=== PATIENT | female | born 1990 | race Caucasian/White ===

== ENCOUNTER → 2020-06-25 13:54 | Outpatient (BNVA) | payer OTHER, SELFPAY | PROVIDERS: PCP Nurse Practitioner; Visit Provider Advanced Practice Midwife ==

== ENCOUNTER 2020-07-08 12:53 | Outpatient (REF) | payer OTHER, SELFPAY ==
--- NOTE | ~2020-07-08 | US_ITS ---
EXAMINATION: US PELVIS COMPLETE US PELVIS ENDOVAGINAL CLINICAL INFORMATION: Abnormal uterine and vaginal bleeding, unspecified COMPARISON: None. TECHNIQUE: Transabdominal and transvaginal images of the pelvis were obtained. FINDINGS: UTERUS: Anteverted, anteflexed Normal size and contour, measuring 6.7 x 2.7 x 4.2 cm (cervix to fundus x AP x transverse). Uniform, homogeneous endometrium measures 0.5 cm in width. Small amount of anechoic and heterogeneous fluid in the endocervical canal. RIGHT OVARY: Normal size and echogenicity measuring 2.6 x 0.8 x 1.7 cm. LEFT OVARY: Normal size and echogenicity measuring 2.4 x 1.4 x 1.5 cm. FREE FLUID: No pelvic free fluid. US/US pelvic complete IMPRESSION: Normal, thin endometrial stripe. There is heterogeneous echogenicity within the endocervical canal which may represent blood products.
--- NOTE | ~2020-07-08 | US_ITS ---
EXAMINATION: US PELVIS COMPLETE US PELVIS ENDOVAGINAL CLINICAL INFORMATION: Abnormal uterine and vaginal bleeding, unspecified COMPARISON: None. TECHNIQUE: Transabdominal and transvaginal images of the pelvis were obtained. FINDINGS: UTERUS: Anteverted, anteflexed Normal size and contour, measuring 6.7 x 2.7 x 4.2 cm (cervix to fundus x AP x transverse). Uniform, homogeneous endometrium measures 0.5 cm in width. Small amount of anechoic and heterogeneous fluid in the endocervical canal. RIGHT OVARY: Normal size and echogenicity measuring 2.6 x 0.8 x 1.7 cm. LEFT OVARY: Normal size and echogenicity measuring 2.4 x 1.4 x 1.5 cm. FREE FLUID: No pelvic free fluid. US/US transvaginal IMPRESSION: Normal, thin endometrial stripe. There is heterogeneous echogenicity within the endocervical canal which may represent blood products.
== END 2020-07-08 12:54 | disposition home or self-care (01) ==
LOC: HO.US 12:53
PROVIDERS: PCP Nurse Practitioner; Visit Provider Advanced Practice Midwife
DX: N93.9 Abnormal uterine and vaginal bleeding, unspecified (principal)
CPT/HCPCS: 76830; 76856

== ENCOUNTER 2020-07-16 10:13 | Outpatient (REF) | payer OTHER, SELFPAY | END 2020-07-16 10:14 | disposition home or self-care (01) | LOC: HO.LAB 10:13 | PROVIDERS: PCP Nurse Practitioner; Visit Provider Obstetrics & Gynecology | DX: N88.9 Noninflammatory disorder of cervix uteri, unspecified (principal); I10 Essential (primary) hypertension; Z32.02 Encounter for pregnancy test, result negative | CPT/HCPCS: 57454; 81025; 88305 ==

== ENCOUNTER → 2020-07-30 12:02 | Outpatient (BNVA) | payer OTHER, SELFPAY | PROVIDERS: PCP Nurse Practitioner; Visit Provider Obstetrics & Gynecology ==

== ENCOUNTER 2020-08-06 13:03 | Outpatient (REF) | payer OTHER, SELFPAY ==
--- NOTE | ~2020-08-06 | US_ITS ---
EXAMINATION: US DIAGNOSTIC ULTRASOUND BREAST, RIGHT US DIAGNOSTIC ULTRASOUND BREAST, LEFT CLINICAL INFORMATION: 30-year-old female with small bilateral palpable areas noted at routine clinical exam. Patient notes no palpable area of concern. No discharge. No prior breast imaging. Strong family history breast cancer in multiple relatives including mother age 24, aunt age 36 and grandmother age 40. COMPARISON: None. TECHNIQUE: Ultrasound of the bilateral breasts is performed with real-time estrada scale imaging and color Doppler without and with harmonics targeted to the areas of clinical concern. Bilateral diagnostic digital breast tomosynthesis was also scheduled but unable to be performed due to 3-D unit unexpectedly down at time of appointment. Mammography has been rescheduled for later this week. FINDINGS: Right: There is a 0.4 x 0.3 cm superficial cyst 5:00 position 2 cm from nipple. This shows circumscribed margins and increased through-transmission of sound at real-time imaging. No associated color flow. There is a oval circumscribed benign-appearing superficial solid mass 8:00 position 5 cm from nipple measuring 1.2 x 0.4 cm. The long axis is parallel with the skin. Margins are smooth. No other cystic or solid mass right breast in the targeted areas. No focal duct ectasia. Left: There is no focal suspicious finding. There is no cystic or solid mass, architectural abnormality, duct ectasia, or edema in the soft tissue planes. Management: Results are discussed with the patient at time of visit. The small oval nodule right breast 8:00 position most likely represents a benign fibroadenoma. Management options discussed. Patient is comfortable with short interval follow-up targeted ultrasound in 6 months. Diagnostic digital breast tomosynthesis has been rescheduled later this week. BRACA testing and additional adjunct annual screening with breast MR also discussed. US/US breast LT limited IMPRESSION: 1. Right: Probable fibroadenoma 8:00 position 1.2 x 0.4 cm. Tiny cyst 0.4 cm at 5:00 position. 2. Left: Unremarkable targeted breast ultrasound. 3. 3-D digital breast tomosynthesis pending. ASSESSMENT: BI-RADS 0: Incomplete - Need Additional Imaging Evaluation RECOMMENDATION: Bilateral diagnostic digital breast tomosynthesis (scheduled). This patient's information was entered into a reminder system with a target due date for their next mammogram.
== END 2020-08-06 13:04 | disposition home or self-care (01) ==
LOC: HO.MAMMO 13:03
PROVIDERS: Visit Provider Advanced Practice Midwife
DX: N63.21 Unspecified lump in the left breast, upper outer quadrant (principal); N63.25 Unspecified lump in the left breast, overlapping quadrants; N63.14 Unspecified lump in the right breast, lower inner quadrant; N63.11 Unspecified lump in the right breast, upper outer quadrant; Z80.3 Family history of malignant neoplasm of breast
CPT/HCPCS: 76642

== ENCOUNTER → 2020-08-13 14:09 | Outpatient (BNVA) | payer OTHER, SELFPAY | PROVIDERS: PCP Nurse Practitioner; Visit Provider Obstetrics & Gynecology ==

== ENCOUNTER → 2020-08-27 09:47 | Outpatient (BNVA) | payer OTHER, SELFPAY | PROVIDERS: PCP Nurse Practitioner; Visit Provider Obstetrics & Gynecology ==

== ENCOUNTER 2020-08-29 09:31 | Day surgery (SDC) | payer OTHER, SELFPAY ==
[2020-08-25 14:26] VITALS: BMI 27.5
--- NOTE | 2020-08-28 08:59 | HO.ANESPROP2 ---
Documented by User: Starr Beyer 08/28/20 08:59 HPI - Anesthesia Eval Consult details Narrative: 30yo F for Cervical Polypectomy PMFSH Active Problems Active Problems: All Active Problems (Updated 07/30/20 @ 14:23 by Garry Spaulding MD) Lesion of cervix (Acute) Past Medical History Medical History Pre-hypertension Family History Family History Mother Breast cancer Ovarian cancer Maternal Grandmother Breast cancer Maternal Aunt Breast cancer Surgical History Surgical History Hx of wisdom tooth extraction Social History Social History Alcohol intake: current Alcohol intake frequency: a few times a week Smoking Status: Never smoker Advance Directives Information Provided: No Gender identity: female Meds Allergies Allergy/AdvReac Type Severity Reaction Status Date / Time No Known Allergies Allergy Verified 08/27/20 09:55 Home Medications Medication Instructions Recorded Confirmed Last Taken Type levonorgestrel 0.15 mg-ethinyl 1 tab PO DAILY 06/25/20 08/25/20 Unknown History estradiol 30 mcg tablets,3 mos pack(91) Exam Exam Date and Time: August 28, 2020 0859 Height,Weight and Vital Signs: Height 5 ft 8 in Weight 82.1 kg Assessment and Plan Assessment Anesthesia Assessment: Chart Reviewed Documented by User: Jihan Luna 08/29/20 12:04 PMFSH Past Medical History Medical History Pre-hypertension Family History Family History Mother Breast cancer Ovarian cancer Maternal Grandmother Breast cancer Maternal Aunt Breast cancer Surgical History Surgical History Hx of wisdom tooth extraction Social History Social History Alcohol intake: current Alcohol intake frequency: a few times a week Smoking Status: Never smoker Advance Directives Information Provided: No Gender identity: female Meds Allergies Allergy/AdvReac Type Severity Reaction Status Date / Time No Known Allergies Allergy Verified 08/27/20 09:55 Home Medications Medication Instructions Recorded Confirmed Last Taken Type levonorgestrel 0.15 mg-ethinyl 1 tab PO DAILY 06/25/20 08/25/20 Unknown History estradiol 30 mcg tablets,3 mos pack(91) Exam Airway Mallampati Class: II TM Dist: >3cm Neck ROM: Full Assessment and Plan Assessment Anesthesia Assessment: Anesthesia Plan Discussed and Chart Reviewed Final Anesthetic Review NPO: Yes ASA Class: II Final Preanesthetic Review: No Changes in Pt Med Stat, Meds/Allgs Chart Reviewed, Consent Obtained/Reviewed and Anes Risks/Benef Reviewed Patient Risk: Low Procedure Risk: Low Assessment/Block/Sedation in SS: Assess/Block/Sedation-SS Anesthetic Plan Anesthetic Plan: MAC: Disposition: Standard PACU
[2020-08-29] VITALS (7 sets, daily range): BP systolic 111–145; BP diastolic 59–85; PULSE 65–90; RESP 16–18; TEMP 36.2–36.6; O2SAT 98–100
[2020-08-29 09:57] LABS: UPreg QC Valid YES; Urine Pregnancy NEGATIVE (NEGATIVE)
[2020-08-29] MEDS: Lactated Ringers 1,000 ML 100 ML IVCONT (12:10)
--- NOTE | 2020-08-29 12:45 | MHC.SHP ---
Pre-Procedural Eval Section A The patient is an INPATIENT: No Changes since office visit: No Cold of Flu in the past 2 weeks, No New Medical Problems, No Changes in Medication and No Patient answered all questions The History & Physical has been completed within 30 days and I have reviewed it.: Yes Section B Chief Complaint: Endocervical Polyp Allergies: Allergies Allergy/AdvReac Type Severity Reaction Status Date / Time No Known Allergies Allergy Verified 08/27/20 09:55 Plan Diagnosis/Plan: Unchanged I have reviewed the history and physical and performed a pertinent physical examination on my patient. No changes have occurred unless specified.
--- NOTE | 2020-08-29 13:13 | PM.OP ---
Brief Operative Note Date of Service: 05/02/20 Pre-op diagnosis: Cervical polyp Post-op diagnosis: same Procedure: Cervical polypectomy using LEEP Surgeon: Garry Spaulding MD Anesthesia: local and other (Paracervical block) Estimated blood loss (mL): 0 Pathology: other (Ant+post Cerv lip, Endocx, Post cone ECC) Condition: stable Disposition: other (Home)
--- NOTE | 2020-08-29 13:14 | W.PM.OPN ---
Operative Note Operative Note Date of Service: 05/02/20 Narrative: Preop diagnosis: Broad-based cervical polyp filling up the whole endocervix Operation: Cervical polypectomy using LEEP Post op diagnosis: same Anesthesia: paracervical block, mac Complications: none Pathology: Endocervical polyp QBL: minimal Procedure: The patient was put in the dorsal lithotomy position, was prepped and draped in the usual sterile fashion. A sterile speculum was inserted inside the patient vagina. 10 cc of Marcaine0.5% with epinephrine were given at 2,4 , 8, and 10 o'clock. Using a medium-size loop wire, the endocervical polyp filling up the whole endocervix was excised followed. Hemostasis was assured using cautery and Monsel solution. All instruments were taken out of the patient's vaginal cavity. the patient tolerated the procedure well and was discharged home with the following instructions: call if temperature is above 100.4, vaginal bleeding, abdominal pain or nausea or vomiting. Follow-up in the office in 2 weeks for postop visit
== END 2020-08-29 14:55 ==
LOC: HO.SSS 09:31
PROVIDERS: Nurse Practitioner; PCP Nurse Practitioner; Visit Provider Obstetrics & Gynecology
PROC: (CPT 58120; principal; 2020-08-29 12:50)
DX: N84.1 Polyp of cervix uteri (principal)
CPT/HCPCS: 57500; 81025; 88305; J1885; J2250; J2405; J3010

== ENCOUNTER 2020-09-03 13:27 | Outpatient (REF) | payer OTHER, SELFPAY ==
--- NOTE | ~2020-09-03 | MM_ITS ---
EXAMINATION: MM DIAGNOSTIC DIGITAL BREAST TOMOSYNTHESIS, BILATERAL CLINICAL INFORMATION: 30-year-old female with significant family history breast cancer in multiple relatives including mother age 24, aunt age 36 and grandmother age 40. No prior mammography. The lifetime risk of breast cancer based on the Tyrer-Cuzick Model is 41%. COMPARISON: Bilateral targeted diagnostic breast ultrasound 08/06/2020. TECHNIQUE: Digital breast tomosynthesis is performed in both the craniocaudal and mediolateral oblique views along with computer-aided detection (CAD). Synthesized 2D images are generated from the tomosynthesis. FINDINGS: The breasts are heterogeneously dense, which may obscure small masses (ACR BI-RADS breast composition Category c). There is no significant mass or architectural abnormality. The axilla and skin contours are unremarkable. There are some scattered isolated punctate round calcifications in each breast. Results are discussed with the patient at time of visit. Patient will be due in 6 months for follow-up targeted right breast ultrasound for probable fibroadenoma noted on recent imaging. BRACA testing and additional adjunct annual screening with breast MR also discussed. MM/MM tomosynthesis diagnostic BI IMPRESSION: No mammographic evidence of malignancy. ASSESSMENT: BI-RADS 2: Benign RECOMMENDATION: 1. Due for targeted right breast ultrasound in 6 months. 2. Routine annual mammography screening, due in 1 year. 3. The lifetime risk of breast cancer based on the Tyrer-Cuzick Model is 41%. Additional annual adjunct screening with breast MRI may be of benefit in women with a risk score of 20% or greater. This patient's information was entered into a reminder system with a target due date for their next mammogram.
== END 2020-09-03 13:28 | disposition home or self-care (01) ==
LOC: HO.MAMMO 13:27
PROVIDERS: PCP Nurse Practitioner; Visit Provider Obstetrics & Gynecology
DX: N63.20 Unspecified lump in the left breast, unspecified quadrant (principal); N63.10 Unspecified lump in the right breast, unspecified quadrant
CPT/HCPCS: 77062; 77066

== ENCOUNTER → 2020-09-16 11:42 | Outpatient (BNVA) | payer OTHER, SELFPAY | PROVIDERS: PCP Nurse Practitioner; Visit Provider Obstetrics & Gynecology ==

== ENCOUNTER → 2020-11-19 10:31 | Outpatient (BNVA) | payer OTHER, SELFPAY | PROVIDERS: PCP Nurse Practitioner; Visit Provider Obstetrics & Gynecology ==

== ENCOUNTER 2021-08-19 14:04 | Outpatient (REF) | payer OTHER, SELFPAY ==
[2021-08-24 21:02] LABS: HPV mRNA E6/E7 rflx Not Detected (Not Detected)
== END 2021-08-19 14:05 | disposition home or self-care (01) ==
LOC: HO.LAB 14:04
PROVIDERS: PCP Nurse Practitioner; Visit Provider Advanced Practice Midwife
DX: Z01.419 Encounter for gynecological examination (general) (routine) without abnormal findings (principal); Z11.51 Encounter for screening for human papillomavirus (HPV)
CPT/HCPCS: 87624; 88142

== ENCOUNTER 2022-03-10 10:02 | Outpatient (REF) | payer OTHER, SELFPAY ==
[2022-03-10 14:28] LABS: CT PCR NOT DETECTED (Not Detect.); NG PCR NOT DETECTED (Not Detect.)
== END 2022-03-10 10:03 | disposition home or self-care (01) ==
LOC: HO.LNP 10:02
PROVIDERS: PCP Nurse Practitioner; Visit Provider Advanced Practice Midwife
DX: Z30.430 Encounter for insertion of intrauterine contraceptive device (principal); Z32.02 Encounter for pregnancy test, result negative; Z20.2 Contact with and (suspected) exposure to infections with a predominantly sexual mode of transmission
CPT/HCPCS: 58300; 81025; 87491; 87591; J7298